=== PATIENT | male | born 1975 | race Caucasian/White ===

== ENCOUNTER 2021-11-23 08:05 | Emergency (ER) | payer OTHER, SELFPAY ==
[2021-11-23 08:09] VITALS: BP 127/91; PULSE 87; RESP 18; TEMP 36.6; O2SAT 99
--- NOTE | 2021-11-23 08:23 | W.ED.GENAD ---
Discharge Plan Disposition Patient Disposition: HOME Condition: Stable Discharge Details Clinical Impression: Muscle pain, myofascial Primary Care Provider: [facility] ED Provider: Kayleigh Prabhakar Home Meds and New Rx's Prescriptions: New orphenadrine citrate 100 mg tablet extended release 100 mg PO BID Qty: 14 0RF prednisone 20 mg tablet 40 mg PO BID 5 Days Qty: 20 0RF lidocaine [Lidoderm] 5 % adhesive patch,medicated 1 patch topical DAILY Qty: 15 0RF Rx Instructions: leave on most painful area for up to 12 hrs Continued naproxen sodium [Aleve] 220 mg Capsule 220 mg PO Q8H PRN0RF trazodone 50 MG tablet 50 mg PO HS 0RF Discharge Instructions Additional Instructions: Today orphenadrine for muscle relaxant, do not drive for 12 hours after taking this medication Take the prednisone for the next 5 days Use the Lidoderm patch starting tomorrow 12 hours on, 12 hours off Apply the diclofenac gel that you have at home when you arrive home You may use your sling during the day, make sure you continue to range your shoulder so it does not become stiff If your symptoms are persistent greater than 5 days, recommend additional imaging at the discretion of your provider I am concerned you may have a cervical herniated disc with your exam findings I would [facility] Limit repetitive motion, no heavy lifting Referrals: [facility] [Primary Care Provider] - 1 week Discharge Data Discharge Date/Time-TO BE ENTERED AT DEPARTURE: 11/23/21 09:25 Medical Decision Making Patient feels improvement after trigger point injection, tolerated without incident Lungs clear to auscultation Acute cardiac etiology however patient has reproducible tenderness that is exacerbated with movement of his left arm and improved with trigger point injection Afebrile and otherwise nontoxic in appearance Placed on prednisone and Norflex as patient does have radicular symptoms associated and may need outpatient MRI with persistent but still having We will follow up with [place] where patient PCP is located Return precautions discussed and patient expressed understanding Medical Records Medical records reviewed: Yes I reviewed the patient's medical records. HPI General Date/Time Provider Initiated Documentation: 11/23/21 08:10. HPI Narrative: This 46-year-old male presents with left mid scapular pain which is consistent with his prior muscle spasm. He states that when he was in the [employer] he tore his scapular muscle and he typically has pain every couple of years in this area. He denies known traumatic injury. The pain is exacerbated with movement and she feels that spasming. He been taking ibuprofen with mild relief in his pain. He denies any anterior chest pain posterior upper chest pain that is constant or any discomfort with deep breathing. He denies any calf pain or swelling or history of coagulopathy. He states he is otherwise healthy. Related Data Home Medications Medication Instructions Recorded Confirmed trazodone 50 mg tablet 50 mg PO HS 08/18/11/23/21 lidocaine 5 % topical patch 1 patch TOPICAL DAILY #15 ea 11/23/21 (Lidoderm) naproxen sodium 220 mg capsule 220 mg PO Q8H PRN 11/23/21 11/23/21 (Aleve) orphenadrine citrate 100 mg 100 mg PO BID #14 tab 11/23/21 tablet,extended release prednisone 20 mg tablet 40 mg PO BID 5 Days #20 tab 11/23/21 Previous Rx's Medication Instructions Recorded lidocaine 5 % topical patch 1 patch TOPICAL DAILY #15 ea 11/23/21 (Lidoderm) orphenadrine citrate 100 mg 100 mg PO BID #14 tab 11/23/21 tablet,extended release prednisone 20 mg tablet 40 mg PO BID 5 Days #20 tab 11/23/21 Allergies Allergy/AdvReac Type Severity Reaction Status Date / Time No Known Allergies Allergy Unverified 11/23/21 08:16 General Stated Complaint: Orthopedic DAIANA: 4 Review of Systems All systems reviewed & are unremarkable except as noted in HPI and below PFSH All Active Problems (Updated 11/23/21 @ 09:02 by JEROD Manley) Muscle pain, myofascial (Acute) Social History Smoking/Tobacco Use Status: Current every day Tobacco Type: cigarettes Smoking risk assessment performed?: Yes Alcohol Intake: current Alcohol Intake frequency: 3 or more drinks per day Alcohol type: hard liquor Drug use: Daily Substance use type: marijuana Do you feel safe at home: Yes Do you feel safe in your relationship?: Yes Exam Const General: cooperative, comfortable and no acute distress Chest Chest: normal inspection of the chest Resp Effort & Inspection: normal respiratory effort Auscultation: clear to auscultation bilaterally Cardio Rate: regular rate Rhythm: regular rhythm GI Inspection: normal to inspection Back/Spine/Pelvis Back: no CVA tenderness Back/spine/pelvis image: 1. tenderness, reproducible Skin General skin exam: no rashes or lesions noted Neuro General: patient alert and patient oriented x3 Cognition: normal cognition Extrem General: normal to inspection Other: distal pulses intact Course Vital Signs Vital signs: Vital Signs Temperature 36.6 C 11/23/21 08:09 Pulse 87 11/23/21 08:09 Respiratory Rate 18 11/23/21 08:09 Blood Pressure 127/91 H 11/23/21 08:09 Pulse Oximetry 99 11/23/21 08:09 Temperature 36.6 C 11/23/21 08:09 Temperature Source Temporal Artery Scan 11/23/21 08:09 Pulse 87 11/23/21 08:09 Respiratory Rate 18 11/23/21 08:09 Respiratory Effort Non-Labored 11/23/21 08:14 Blood Pressure 127/91 H 11/23/21 08:09 Blood Pressure Position Sitting 11/23/21 08:09 Pulse Oximetry 99 11/23/21 08:09 Oxygen Delivery Method Room Air 11/23/21 08:09 Oxygen Flow Rate 0 11/23/21 08:09 Pain Level 7 11/23/21 08:18 Procedures Other Description: 5 cc of 0.5 % marcaine injected into left trapezius muscle after betadine application topically as a trigger point injection PAWSS Have you Been Recently Intoxicated or Drunk Within the Last 30 days?: No Have you Ever Experienced Previous Episodes of Alcohol Withdrawal?: No Have you ever Experienced Withdrawal Seizures?: No Have you ever Experienced Delirium Tremens(DT)s?: No Have you ever undergone Alcohol Rehabilitation Treatment (i.e, inpt ot outpatient treatment programs)?: No Have you ever Experienced Blackouts?: No Have you ever Combined Alcohol with other Downers within the last 90 days?: No Have you ever Combined Alcohol with any other Substance of Abuse during the last 90 days?: No Positive Blood Alcohol level on Presentation? [PCS.BAL]: No Evidence of Increased Autonomic Activity (i.e. HR>120, tremor, sweating, agitation, nausea)?: No Result: 0
[2021-11-23] MEDS: Bupivacaine 0.5% Pres-Free 30 ML VIAL IJ (09:15)
== END 2021-11-23 09:25 | disposition home or self-care (01) ==
PROVIDERS: Emergency Provider Physician Assistant
DX: M79.18 Myalgia, other site (principal); M25.512 Pain in left shoulder
CPT/HCPCS: 20552; 99284; 99283

== ENCOUNTER 2021-12-15 22:24 | Emergency (ER) | payer OTHER, SELFPAY ==
--- NOTE | 2021-12-15 22:15 | DI.RAD_ITS ---
Exam(s) XR FOOT LT COMPLETE EXAM: XR FOOT LT COMPLETE CLINICAL HISTORY: fall, suspected MTP dislocation. maybe T/MT? TECHNIQUE: COMPARISON: No exams were available for comparison FINDINGS: Three views were obtained and show comminuted fracture of the base of the 1st metatarsal. No gross w idening at the expected location of the Lisfranc ligament. No additional fracture seen. Please see accompanying CT report. IMPRESSION: RADIATION DOSE DELIVERED: Total DLP
[2021-12-15 22:25] VITALS: BP 142/96; PULSE 88; RESP 18; TEMP 36.6; O2SAT 96
--- NOTE | 2021-12-15 23:21 | DI.VRAD_ITS ---
PROCEDURE INFORMATION: Exam: XR Left Foot Exam date and time: 12/15/2021 22:37 Age: 46 years old Clinical indication: Injury or trauma; Other: Fall, suspected mtp dislocation. Maybe t/mt? ; Blunt trauma; Foot; Left TECHNIQUE: Imaging protocol: XR Left foot. Views: 3 or more views. COMPARISON: No relevant prior studies available. FINDINGS: Bones/joints: Acute fracture, proximal 1st metatarsal. There is intra-articular involvement as well as involvement of the diaphysis. However the 1st tarsal metatarsal joint does not appear frankly dislocated. Soft tissues: Soft tissue swelling surrounding the fracture site. IMPRESSION: Acute fracture, proximal 1st metatarsal as described above. Dictated and Authenticated by: Yanet Warren MD. Ordering:DISHA Love MD
--- NOTE | 2021-12-15 23:30 | DI.CT_ITS ---
Exam(s) CT LOWER EXTREMITY LT WO EXAM: CT LOWER EXTREMITY LT WO CLINICAL HISTORY: eval left foot for fx dislocation TECHNIQUE: COMPARISON: No exams were available for comparison FINDINGS: There is a markedly comminuted fracture of the base of the 1st metatarsal with fragmentation and disp lacement at the articular surface. No additional fracture seen. No gross Lisfranc ligament injury b y CT criteria. IMPRESSION: RADIATION DOSE DELIVERED: 223.11mGy.cm Total DLP !Error CTDIvol RADIATION OPTIMIZATION: All CT scans at this facility use at least one of these dose optimization te chniques: automated exposure control; mA and/or kV adjustment per patient size (includes targeted exa ms where dose is matched to clinical indication); or iterative reconstruction.
[2021-12-16 00:22] VITALS: BP 146/68; PULSE 62; RESP 18; O2SAT 99
--- NOTE | 2021-12-16 00:23 | ED.GENADUL_ITS ---
Discharge Plan Disposition Patient Disposition: HOME Condition: Good Discharge Details Clinical Impression: Fracture of first metatarsal bone of left foot Primary Care Provider: [place] [place] Provider: Ivan Maza Home Meds and New Rx's Prescriptions: Continued naproxen sodium [Aleve] 220 mg Capsule 220 mg PO Q8H PRN0RF trazodone 50 MG tablet 50 mg PO HS 0RF sertraline 25 mg Tablet 25 mg PO DAILY 0RF gabapentin 300 mg Tablet 300 mg PO TID 0RF Discharge Instructions Instructions: Foot Fracture in Adults (ED) Additional Instructions: At this time you have a fracture of the first metatarsal bone. This may require surgery. Please follow-up closely with Dr. Bowman's office. They will reach out to you tomorrow for appointment time. Please take Tylenol and Motrin as needed for pain. If you do have breakthrough pain that is too uncomfortable to bear please take the Cottonwood pills as needed. It does have Tylenol in it, so do not take it with any additional Tylenol. Please keep ice on your foot, keep it elevated and keep it in the splint until you are reassessed by Dr. Bowman. If you notice any worsening of your symptoms, or any new symptoms such as vomiting, diarrhea, fever, chills, shortness of breath, chest pain, numbness, weakness, or fainting , please return immediately to the emergency department for reevaluation. Please follow up with your primary care provider as soon as possible for reassessment and reevaluation. As always, it was a pleasure participating in your medical care today. Referrals: Nasim Bowman MD [ [facility]FF [facility]YSIC[facility]] - [place] [place] [Primary Care Provider] - Discharge Data Discharge Date/Time-TO BE ENTERED AT DEPARTURE: 12/16/21 00:34 Medical Decision Making This is a pleasant 46-year-old male with no significant past medical history who presents today via EMS for evaluation of left foot deformity after fall. Patient states that he had a few shots this evening, was a little intoxicated. He got up to go to the bathroom and on his way back felt lightheaded, which she states fairly common when he has had alcohol. Unfortunately he does not fell and hit his foot on the door post. He noticed a deformity on his foot, and EMS was contacted. Patient was brought in for further evaluation. Aside for drinking alcohol this evening he denies any other complaints. He denies any pain in his mcgregor or knee or ankle. Pain is made worse with movement, improved by nothing. Physical exam demonstrates a very atypical finding of what appears to be protruding slightly round osseous structure at the first metatarsal head on the left foot. Skin is mobile over top of this, no evidence of vascular compromise at the skin or distally toes. There does appear to be a sensory deficit on the medial aspect of the great toe, but no other evidence of sensory deficits in the other toes, or the dorsal or plantar aspect. Suspect dislocation as a primary etiology, but fracture is also on the differential. We will start with x-ray, I will perform a block to the joint area, will monitor closely and reassess. Of note the patient demonstrates no other evidence of trauma on exam to suggest significant traumatic process to his head neck arm chest abdomen or pelvis. No midline cervical thoracic or lumbar spine tenderness. No indication for other imaging at this time. 1:30 AM X-ray results demonstrate evidence of fracture of the first metatarsal on the left, however this is notably atypical it does not appear to be significant dislocation. I did contact Dr. Bowman of orthopedics, he does recommend splinting, pain meds as needed, and if there is no evidence of vascular compromise, which currently there is not, then he can follow-up closely on an outpatient basis. He also recommends getting CT scan. CT scan was ordered and demonstrates continued evidence of fracture with interaction with the joint spaces well. Patient was splinted, repeat exam after splinting demonstrates stable neurovascular exam with no signs of vascular compromise, still tingling on the toe but no other increase tingling or diminished sensation. Patient is notably comfortable at the current ankle at this point. We will give a small bottle of Cottonwood for home use as needed. With no other evidence of trauma, no evidence of neurologic compromise, cardiac dysrhythmia on exam, or vital sign abnormality, I do feel the patient is stable for discharge. Discussed red flags which to return. I have extensively reviewed the treatment plan and discharge instructions with the patient. I have addressed all patient concerns at this time. The patient was made aware of what symptoms to monitor for that would warrant a return to the emergency department. Discussed the plan with the patient, they demonstrate verbal understanding and agreement with our assessment and plan at this time. The documentation in this chart was dictated using [employer] dictation software. Please excuse any dictation errors. FINDINGS: Bones/joints: Acute fracture, proximal 1st metatarsal. There is intra-articular involvement as well as involvement of the diaphysis. However the 1st tarsal metatarsal joint does not appear frankly dislocated. Soft tissues: Soft tissue swelling surrounding the fracture site. IMPRESSION: Acute fracture, proximal 1st metatarsal as described above. Thank you for allowing us to participate in the care of your patient. Dictated and Authenticated by: Yanet Warren MD 12/15/2021 11:20 PM Eastern Time ([place] & [place]) FINDINGS: Bones/joints: A comminuted fracture is present in the 1st metatarsal. Fracture involves the proximal articular surface with the medial cuneiform, with central diastasis of 8 mm at the articular surface. Several displaced fracture fragments are present. Fracture lines extend to the mid shaft of the bone. The distal aspect of the 1st metatarsal is intact. There are no other fractures observed. Overall tarsometatarsal alignment is normal. Soft tissues: No soft tissue air. Mild hemorrhage/stranding noted around the fracture. IMPRESSION: Comminuted intra-articular fracture, 1st metatarsal proximal aspect. Thank you for allowing us to participate in the care of your patient. Dictated and Authenticated by: Esequiel Foote MD [facility] General Date/Time Provider Initiated Documentation: 12/15/21 22:28 . HPI Narrative: This is a pleasant 46-year-old male with no significant past medical history who presents today via EMS for evaluation of left foot deformity after fall. Patient states that he had a few shots this evening, was a little intoxicated. He got up to go to the bathroom and on his way back felt lightheaded, which she states fairly common when he has had alcohol. Unfortunately he does not fell and hit his foot on the door post. He noticed a deformity on his foot, and EMS was contacted. Patient was brought in for further evaluation. Aside for drinking alcohol this evening he denies any other complaints. He denies any pain in his mcgregor or knee or ankle. Pain is made worse with movement, improved by nothing. Related Data Home Medications Medication Instructions Recorded Confirmed trazodone 50 mg tablet 50 mg PO HS 08/18/16 12/15/21 naproxen sodium 220 mg capsule 220 mg PO Q8H PRN 11/23/21 12/15/21 (Aleve) gabapentin 300 mg tablet 300 mg PO TID 12/15/21 12/15/21 sertraline 25 mg tablet 25 mg PO DAILY 12/15/21 12/15/21 Allergies Allergy/AdvReac Type Severity Reaction Status Date / Time No Known Allergies Allergy Unverified 12/15/21 22:28 General Stated Complaint: Orthopedic DAIANA: 4 Review of Systems All systems reviewed & are unremarkable except as noted in HPI and below PFSH All Active Problems Muscle pain, myofascial (Acute) Fracture of first metatarsal bone of left foot (Acute) Social History Smoking/Tobacco Use Status: Current every day Tobacco Type: cigarettes Smoking risk assessment performed?: Yes Alcohol Intake: current Alcohol Intake frequency: 3 or more drinks per day Alcohol type: hard liquor Drug use: Daily Substance use type: marijuana Do you feel safe at home: Yes Do you feel safe in your relationship?: Yes Exam Narrative Exam Narrative: 1.Const: Well-nourished, Well-developed, appearing stated age 2.Eyes: PERRL, no conjunctival injection, and symmetrical lids. 3.ENT: Atraumatic external nose and ears. Moist MM. Neck: Symmetric, trachea midline, No thyromegaly. There is no evidence of raccoon eyes, iverson sign, CSF rhinorrhea, mastoid tenderness, cranial crepitus, hemotympanum, exophthalmos, or hyphema. Patient demonstrates intact dentition with no signs of tooth avulsion or fracture, no signs of jaw deformity, no evidence of a LeFort's fracture, with an intact palate, nose and orbital region. There is no evidence of a nasal septal hematoma. No proptosis. Jaw closes symmetrically. Airway is clear. 4.CVS: +S1/S2, No murmurs or gallops. Peripheral pulses 2+ and equal in all ex tremities. Brisk capillary refill in all extremities. 5.RESP: Unlabored respiratory effort. Clear to auscultation bilaterally. No wheezes rales or rhonchi 6.GI: Soft, Nontender/Nondistended, No hepatosplenomegaly. No guarding or rebound. 7.MSK: Normocephalic patient's extremities are atraumatic so for the patient's left foot. At the tarsal metatarsal junction there is a notable deformity of the first metatarsal head, with a significant protrusion of the skin with what appears to be dorsal angulation. Although the skin is elevated it is easily mobile, and not tense. There is no cyanosis or a vascular component that is noted on skin. No evidence of perforation. Distal to this, the patient demonstrates good capillary refill for all his toes. He is unable to flex or extend his toes secondary to pain but he does, however he is relatively pain- free he keeps his foot stable. There is slight decrease in sensation over the medial aspect of the great toe, however on the tip of the toes, as well as the plantar and dorsal aspect of the foot otherwise there appears to be no significant sensory deficit. 8.Skin: Warm, Dry. No rashes or lesions. 9.Neuro: research development manager II-XII grossly intact. Sensation grossly intact, no focal neurologic deficits. Please see musculoskeletal 10.Psych: (AAO) x3. Appropriate mood and affect Course Vital Signs Vital signs: Vital Signs Temperature 36.6 C 12/15/21 22:25 Pulse 88 12/15/21 22:25 Respiratory Rate 18 12/15/21 22:25 Blood Pressure 142/96 H 12/15/21 22:25 Pulse Oximetry 96 12/15/21 22:25 Temperature 36.6 C 12/15/21 22:25 Temperature Source Temporal Artery Scan 12/15/21 22:25 Pulse 88 12/15/21 22:25 Respiratory Rate 18 12/15/21 22:25 Blood Pressure 142/96 H 12/15/21 22:25 Blood Pressure Position Sitting 12/15/21 22:25 Pulse Oximetry 96 12/15/21 22:25 Pain Level 6 12/15/21 22:25
--- NOTE | 2021-12-16 01:58 | DI.VRAD_ITS ---
PROCEDURE INFORMATION: Exam: CT Left Lower Extremity Without Contrast, Foot Exam date and time: 12/15/2021 11:40 PM Age: 46 years old Clinical indication: Injury or trauma; Blunt trauma; Foot; Left; Injury date: 12/15/21; Injury details: Fall, pain TECHNIQUE: Imaging protocol: CT of the Left lower extremity without contrast was performed. Exam focused on the foot. Radiation optimization: All CT scans at this facility use at least one of these dose optimization techniques: automated exposure control; mA and/or kV adjustment per patient size (includes targeted exams where dose is matched to clinical indication); or iterative reconstruction. COMPARISON: CR XR FOOT LT COMPLETE 12/15/2021 10:37 PM FINDINGS: Bones/joints: A comminuted fracture is present in the 1st metatarsal. Fracture involves the proximal articular surface with the medial cuneiform, with central diastasis of 8 mm at the articular surface. Several displaced fracture fragments are present. Fracture lines extend to the mid shaft of the bone. The distal aspect of the 1st metatarsal is intact. There are no other fractures observed. Overall tarsometatarsal alignment is normal. Soft tissues: No soft tissue air. Mild hemorrhage/stranding noted around the fracture. IMPRESSION: Comminuted intra-articular fracture, 1st metatarsal proximal aspect. Dictated and Authenticated by: Esequiel Foote MD. Ordering:DISHA Love MD
== END 2021-12-16 00:34 | disposition home or self-care (01) ==
PROVIDERS: Emergency Provider Student in an Organized Health Care Education/Training Program
DX: S92.312A Displaced fracture of first metatarsal bone, left foot, initial encounter for closed fracture (principal); W18.39XA Other fall on same level, initial encounter
CPT/HCPCS: 29515; 99284; 73630; 73700; 99283

== ENCOUNTER 2021-12-26 16:02 | Emergency (ER) | payer OTHER, SELFPAY ==
[2021-12-26 16:12] VITALS: BP 154/101; PULSE 86; RESP 16; TEMP 36.5; O2SAT 95
--- NOTE | 2021-12-26 16:15 | DI.RAD_ITS ---
Exam(s) XR PORTABLE CHEST AP EXAM: XR PORTABLE CHEST AP CLINICAL HISTORY: fever, post op TECHNIQUE: 2D digital imaging was performed. COMPARISON: No exams were available for comparison FINDINGS: LUNGS: Clear. No pleural abnormality seen. HEART: Normal. MEDIASTINUM: Normal. BONES: Unremarkable. IMPRESSION: No acute pulmonary findings. DATA REPOSITORY: RADIATION DOSE DELIVERED:
[2021-12-26 16:58] LABS: Source Nasal/Nares
[2021-12-26 17:01] LABS: Abs Immature Grans 0.02 10^3/uL (0.0-0.06); Absolute Basophil Count 0.06 10^3/uL (0.0-0.2); Absolute Eosinophil Count 0.31 10^3/uL (0.0-0.7); Absolute Lymphocyte Count 2.79 10^3/uL (1.2-3.4); Absolute Monocyte Count 0.85 10^3/uL (0.1-0.8); Absolute Neutrophil Count 6.23 10^3/uL (1.2-6.7); Basophils % 0.6; HCT 43.5 % (40.0-50.0); HGB 15.1 g/dL (13.5-17.5); Immature Grans % 0.2; Lymphocytes % 27.2; MCH 34.5 pg (27.0-33.0); MCHC 34.7 % (32.0-36.0); MCV 99 fL (80-95); MPV 9.4 fL (8.0-11.0); Monocytes % 8.3; Neutrophils % 60.7; Platelet Count 379 10^3/uL (130-400); RBC 4.38 10^6/uL (4.36-5.78); RDW 12.8 % (11.8-14.1); RDW-SD 47.1 fL; WBC 10.26 10^3/uL (4.4-10.8)
[2021-12-26] MEDS: Ondansetron 4 MG/2 ML VIAL IVP (17:02)
[2021-12-26 17:13] LABS: ALT 30 U/L (16-63); AST 24 U/L (15-37); Albumin 3.8 g/dL (3.4-5.0); Alkaline Phosphatase 71 U/L (46-116); Anion Gap 10.5 mmol/L (3-11); BUN 7 mg/dL (7-18); Bilirubin, Total 0.5 mg/dL (0.2-1.0); C-Reactive Protein 0.51 mg/dL (0.0-0.3); CO2 23.5 mmol/L (21.0-32.0); CREATININE 0.9 mg/dL (0.70-1.30); Calcium 8.6 mg/dL (8.5-10.1); Chloride 104 mmol/L (98-107); Glucose 96 mg/dL (74-106); Potassium 3.9 mmol/L (3.5-5.1); Sodium 138 mmol/L (136-145); Total Protein 7.3 g/dL (6.4-8.2)
--- NOTE | 2021-12-26 17:27 | DI.VRAD_ITS ---
PROCEDURE INFORMATION: Exam: XR Chest Exam date and time: 12/26/2021 4:58 PM Age: 46 years old Clinical indication: Other: Fever, post op; Prior surgery; Surgery date: 3-7 days post-operative TECHNIQUE: Imaging protocol: XR of the chest. Views: 1 view. COMPARISON: No relevant prior studies available. FINDINGS: Lungs: Unremarkable. No consolidation. Pleural spaces: Unremarkable. No pleural effusion. No pneumothorax. Heart/Mediastinum: Unremarkable. No cardiomegaly. Bones/joints: Unremarkable. IMPRESSION: No acute findings. Dictated and Authenticated by: Juaquin Granger MD. Ordering:MARGIE Victor MD
[2021-12-26 17:35] LABS: COVID-19 PCR Negative (Negative)
[2021-12-26 17:49] VITALS: BP 146/84; PULSE 71; RESP 18; TEMP 36.8; O2SAT 96
--- NOTE | 2021-12-26 17:58 | W.ED.GENAD ---
Discharge Plan Disposition Patient Disposition: HOME Condition: Stable Discharge Details Clinical Impression: Nausea, Chills Primary Care Provider: [facility] [facility] Provider: Kayleigh Prabhakar Home Meds and New Rx's Prescriptions: New ondansetron 4 mg tablet,disintegrating 4 mg PO DAILY Qty: 10 0RF Continued naproxen sodium [Aleve] 220 mg Capsule 220 mg PO Q8H PRN0RF oxycodone 5 mg tablet 5 mg PO BID 0RF Label Comments: TAKE 1/2 TO 1 TABLET BY MOUTH TWICE DAILY NEEDED FOR PAIN acetaminophen [Acetaminophen Extra Strength] 500 mg Tablet 1,000 mg PO PRN PRN0RF ibuprofen 600 mg Tablet 600 mg PO PRN PRN0RF trazodone 50 MG tablet 50 mg PO HS 0RF sertraline 25 mg Tablet 25 mg PO DAILY 0RF gabapentin 300 mg Tablet 300 mg PO TID 0RF Discharge Instructions Instructions: Acute Nausea and Vomiting (ED) Additional Instructions: Take Zofran as needed for nausea and vomiting Take ibuprofen and Tylenol as needed for pain Recheck with your primary care physician on Tuesday Return with worsening pain, persistent fever, or should you have new or worsening complaints Follow-up with [facility] at your scheduled appointment Should you notice redness or worsening pain to your left foot, recommend reassessment Should you have persistent pain to your right foot x-ray imaging Referrals: [facility] [Primary Care Provider] - Medical Decision Making No evidence of obvious bacterial source of infection Patient appears well, his vitals are stable No leukocytosis, CRP consistent with recent surgery but not bacterial infection I suspect patient has viral syndrome and while he has had recent foot surgery I think that his exam is inconsistent with site being infected His Hemoccult was negative His blood pressure slightly elevated, he will follow-up regarding this He will need recheck in 24 to 48 hours and early return precaution discussed and patient expressed understanding, he does have some tenderness to his right foot, that started 3 days ago and is probably related to overuse I offered x-ray, patient has declined Chest x-ray per radiology interpretation in my review does not show evidenceofacute infection Medical Records Medical records reviewed: Yes I reviewed the patient's medical records. Lab Data Lab results reviewed: Yes I reviewed the patient's lab results. HPI General Date/Time Provider Initiated Documentation: 12/26/21 16:20. HPI Narrative: This 46-year-old gentleman presents after surgery at [facility] on his first metatarsal bone approximately 1 week prior to arrival. Today he had nausea and chills. He states he had a reported fever at home, 100.4. He states that he rechecked it and it was 99.3 without any antipyretic use. He denies any chest pain or shortness of breath. He denies any pain to the affected left foot. He denies any increased redness, drainage from the site. He denies any urinary symptoms or cough. Denies any vomiting or diarrhea. Reports only nausea. Reports discomfort to his right foot in the area but denies trauma to this area. Took Tylenol at approximately cough today. Denies known sick contacts. Related Data Home Medications Medication Instructions Recorded Confirmed trazodone 50 mg tablet 50 mg PO HS 08/18/16 12/26/21 naproxen sodium 220 mg capsule 220 mg PO Q8H PRN 11/23/21 12/26/21 (Aleve) gabapentin 300 mg tablet 300 mg PO TID 12/15/21 12/26/21 sertraline 25 mg tablet 25 mg PO DAILY 12/15/21 12/26/21 acetaminophen 500 mg tablet 1,000 mg PO PRN PRN 12/26/21 12/26/21 (Acetaminophen Extra Strength) ibuprofen 600 mg tablet 600 mg PO PRN PRN 12/26/21 12/26/21 ondansetron 4 mg disintegrating 4 mg PO DAILY #10 tab 12/26/21 tablet oxycodone 5 mg tablet 5 mg PO BID 12/26/21 12/26/21 Previous Rx's Medication Instructions Recorded ondansetron 4 mg disintegrating 4 mg PO DAILY #10 tab 12/26/21 tablet Allergies Allergy/AdvReac Type Severity Reaction Status Date / Time No Known Allergies Allergy Unverified 12/26/21 16:17 General Stated Complaint: GenMedical DAIANA: 3 Review of Systems All systems reviewed & are unremarkable except as noted in HPI and below PFSH All Active Problems (Updated 12/26/21 @ 18:23 by JEROD Manley) Fracture of first metatarsal bone of left foot (Acute) Nausea (Acute) Chills (Acute) Social History Smoking/Tobacco Use Status: Current every day Tobacco Type: cigarettes Smoking risk assessment performed?: Yes Alcohol Intake: current Alcohol Intake frequency: 3 or more drinks per day Alcohol type: hard liquor Drug use: Daily Substance use type: marijuana Do you feel safe at home: Yes Do you feel safe in your relationship?: Yes Exam Const General: cooperative, comfortable and no acute distress Orientation: alert and oriented x3 Eyes General: appearance normal, both eyes and all related structures Neck Other: no meningismus Resp Effort & Inspection: normal respiratory effort Auscultation: clear to auscultation bilaterally Cardio Rate: regular rate Rhythm: regular rhythm GI Inspection: normal to inspection Rectal Exam: visual inspection normal Skin General skin exam: no rashes or lesions noted Neuro General: patient alert and patient oriented x3 Extrem General: normal to inspection Other: There right first metatarsal tenderness, no erythema, range of motion intact, left foot with well-healing postoperative site without redness, tenderness, drainage, dehiscence, or crepitus neurovascularly intact Course Vital Signs Vital signs: Vital Signs Temperature 36.5 C 12/26/21 16:12 Pulse 86 12/26/21 16:12 Respiratory Rate 16 12/26/21 16:12 Blood Pressure 154/101 H 12/26/21 16:12 Pulse Oximetry 95 12/26/21 16:12 Temperature 36.8 C 12/26/21 17:49 Temperature Source Oral 12/26/21 17:49 Pulse 86 12/26/21 16:12 Respiratory Rate 16 12/26/21 16:12 Respiratory Effort 12/26/21 16:12 Blood Pressure 154/101 H 12/26/21 16:12 Blood Pressure Position Sitting 12/26/21 16:12 Pulse Oximetry 95 12/26/21 16:12 Oxygen Delivery Method Room Air 12/26/21 16:12 Oxygen Flow Rate 0 12/26/21 16:12 Pain Level 2 12/26/21 16:12 Lab/Test Results Lab/Test Results: Laboratory Tests Range/Units 12/26/21 12/26/21 12/26/21 16:50 16:50 16:50 WBC (4.4-10.8) 10^3/uL 10.26 RBC (4.36-5.78) 10^6/uL 4.38 Hgb (13.5-17.5) g/dL 15.1 Hct (40.0-50.0) % 43.5 MCV (80-95) fL 99 H MCH (27.0-33.0) pg 34.5 H MCHC (32.0-36.0) % 34.7 RDW (11.8-14.1) % 12.8 Plt Count (130-400) 10^3/uL 379 MPV (8.0-11.0) fL 9.4 Immature Gran % 0.2 Neutrophils % 60.7 Lymphocytes % 27.2 Monocytes % 8.3 Eosinophils % 3.0 Basophils % 0.6 Nucleated RBC % (0.0-0.3) % 0.0 Absolute Neutrophils (1.2-6.7) 10^3/uL 6.23 Absolute Lymphocytes (1.2-3.4) 10^3/uL 2.79 Absolute Monocytes (0.1-0.8) 10^3/uL 0.85 H Absolute Eosinophils (0.0-0.7) 10^3/uL 0.31 Absolute Basophils (0.0-0.2) 10^3/uL 0.06 Sodium (136-145) mmol/L 138 Potassium (3.5-5.1) mmol/L 3.9 Chloride (98-107) mmol/L 104 Carbon Dioxide (21.0-32.0) mmol/L 23.5 Anion Gap (3-11) mmol/L 10.5 BUN (7-18) mg/dL 7 Creatinine (0.70-1.30) mg/dL 0.9 Estimated GFR/1.73 m2 (mL/min/1.73m2) >= 60.00 Glucose (74-106) mg/dL 96 Calcium (8.5-10.1) mg/dL 8.6 Total Bilirubin (0.2-1.0) mg/dL 0.5 AST (15-37) U/L 24 ALT (16-63) U/L 30 Alkaline Phosphatase (46-116) U/L 71 C-Reactive Protein (0.0-0.3) mg/dL 0.51 H Total Protein (6.4-8.2) g/dL 7.3 Albumin (3.4-5.0) g/dL 3.8 COVID-19 Source Nasal/Nares SARS-CoV-2 (PCR) (Negative) Negative
[2021-12-26 18:13] LABS: Bilirubin Negative (Negative); Blood Negative (Negative); Clarity Clear (Clear); Glucose Negative (Negative); Ketones Negative (Negative); Leukocyte Esterase Negative (Negative); Nitrite Negative (Negative); Specific Gravity 1.015 (1.005-1.025); Urobilinogen 0.2 EU/dL (Up TO 0.2)
[2021-12-26 18:26] VITALS: RESP 16
== END 2021-12-27 18:36 | disposition home or self-care (01) ==
PROVIDERS: Emergency Provider Physician Assistant
DX: R11.0 Nausea (principal); R50.9 Fever, unspecified
CPT/HCPCS: 80053; 87635; 96374; 99283; 99284; 71045; 81003; 85025; 86140; J2405

== ENCOUNTER 2025-06-06 04:25 | Outpatient (CLI) | payer OTHER, SELFPAY ==
--- NOTE | 2025-06-06 | DI.RAD_ITS ---
Exam(s) XR FOOT LT COMPLETE EXAM: XR FOOT LT COMPLETE CLINICAL HISTORY: [id number], CHRIS FOOT PAIN, HX LT FOOT SURGERY, RT HEEL PAIN,[id number]. TECHNIQUE: 2D digital imaging was performed of the left foot. Three images were obtained. AP, oblique and lateral views were obtained. COMPARISON: CR,XR XR FOOT LT COMPLETE from 12/15/2021 FINDINGS: BONES: There is a lucency through the medial aspect of the base of the proximal phalanx of the 5th toe suspicious for nondisplaced fracture. There is an old healed 1st metatarsal fracture. There is a 1st TMT joint fusion. No bony destructive lesion is seen. JOINTS: No dislocation present. SOFT TISSUE: Normal. IMPRESSION: Lucency through the medial aspect of the base of the proximal phalanx of the 5th toe suspicious for nondisplaced fracture. Please correlate clinically. DATA REPOSITORY: RADIATION DOSE DELIVERED:
--- NOTE | 2025-06-06 | DI.RAD_ITS ---
Exam(s) XR FOOT RT COMPLETE EXAM: XR FOOT RT COMPLETE CLINICAL HISTORY: [id number], CHRIS FOOT PAIN, HX LT FOOT SURGERY, RT HEEL PAIN,[id number]. TECHNIQUE: 2D digital imaging was performed of the right foot. Three images were obtained. AP, oblique and lateral views were obtained. COMPARISON: No exams were available for comparison FINDINGS: BONES: No acute fracture is present. No bony destructive lesion is seen. JOINTS: No dislocation present. SOFT TISSUE: Normal. IMPRESSION: Unremarkable radiographs of the right foot. DATA REPOSITORY: RADIATION DOSE DELIVERED:
== END 2025-06-06 04:45 ==
PROVIDERS: Visit Provider Internal Medicine
DX: M79.671 Pain in right foot (principal); M79.672 Pain in left foot; R93.89 Abnormal findings on diagnostic imaging of other specified body structures
CPT/HCPCS: 73630